=== PATIENT | male | born 2000 | race Caucasian/White ===

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

== ENCOUNTER 2021-10-14 08:16 | Emergency (ER) | payer OTHER, SELFPAY ==
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
[2021-10-14 08:25] VITALS: BP 139/75; PULSE 90; RESP 16; TEMP 37.1; O2SAT 99
[2021-10-14 08:32] VITALS: BP 139/75; PULSE 90; RESP 16; TEMP 37.1; O2SAT 99
== END 2021-10-14 08:56 | disposition home or self-care (01) ==
PROVIDERS: Emergency Provider Nurse Practitioner; PCP Physician Assistant
DX: J02.9 Acute pharyngitis, unspecified (principal)
CPT/HCPCS: 87081; 87880; 99213; G0463